=== PATIENT | female | born 1955 | race Two or more races ===

== ENCOUNTER 2021-09-29 12:12 | Emergency (ER) | payer SELFPAY ==
[~2021-09-29] VITALS: Ht 157.5 cm; Wt 61.2 kg
[2021-09-29 13:10] VITALS: BP 134/82
== END 2021-09-29 14:44 | disposition home or self-care (01) ==
LOC: ER 12:12
DX: U07.1 COVID-19 (principal); J12.82 Pneumonia due to coronavirus disease 2019
CPT/HCPCS: 36415; 71045; 87426